=== PATIENT | male | born 1940 | race Caucasian/White ===

== ENCOUNTER → 2020-06-16 | Outpatient (CLI) | payer MEDICARE | LOC: RAD 15:52 → VAS 15:52 → RAD 16:45 | DX: R01.1 Cardiac murmur, unspecified (principal) ==

== ENCOUNTER → 2021-06-20 | Outpatient (CLI) | payer MEDICARE | LOC: RAD 08:45 → VAS 08:47 | DX: I27.20 Pulmonary hypertension, unspecified (principal); I07.1 Rheumatic tricuspid insufficiency ==

== ENCOUNTER 2021-09-09 15:13 | Emergency (ER) | payer MEDICARE, OTHER ==
[~2021-09-09] VITALS: Ht 180.3 cm; Wt 90.9 kg
[2021-09-09] MEDS ORDERED: MACULAR HEALTH1 EACH PO (15:52)
[2021-09-09] MEDS ORDERED: [UNRECOGNIZED DRUG - OTHER] (15:53)
[2021-09-09] MEDS ORDERED: CYANOCOBAL1000 MCG/1 IM (15:54)
[2021-09-09] MEDS ORDERED: BLACK ELDERBER1 EACH PO (15:55)
[2021-09-09] MEDS ORDERED: VITAMIN C PUR1000 MG PO (15:56)
[2021-09-09 16:21] VITALS: BP 145/78
== END 2021-09-09 16:30 | disposition home or self-care (01) ==
LOC: ED 15:13
DX: S61.210A Laceration without foreign body of right index finger without damage to nail, initial encounter (principal); Z23 Encounter for immunization; W23.1XXA Caught, crushed, jammed, or pinched between stationary objects, initial encounter
CPT/HCPCS: 90715